=== PATIENT | male | born 1960 | race Caucasian/White ===

== ENCOUNTER → 2017-04-11 15:25 | Outpatient (REF) | payer OTHER, SELFPAY ==
[2017-04-11 18:46] LABS: Chol/HDL Ratio 5.4 (1-3.5); Cholesterol 193 mg/dL (140-200); HDL Cholesterol 36 mg/dL (27-67); LDL Cholesterol 112 mg/dL (0-130); Triglycerides 226 mg/dL (30-200); VLDL Cholesterol 45 mg/dL (0-40)
== END ==
LOC: LAB 15:25
PROVIDERS: Visit Provider Nurse Practitioner Family
DX: E78.5 Hyperlipidemia, unspecified (principal)
CPT/HCPCS: 80061

== ENCOUNTER → 2020-06-06 17:18 | Outpatient (CLI) | payer OTHER, SELFPAY ==
[2020-06-06 18:04] LABS: Basophils # 0.1 K/mm3 (0-0.2); Basophils % 0.7 % (0.1-2.0); Eosinophils # 0.3 K/mm3 (0.0-0.4); Eosinophils % 3.1 % (0.1-12.0); Hematocrit 44.5 % (42.0-52.0); Lymphocytes % 33.6 % (10-50); Mean Corpuscular HGB Conc 33.8 g/dL (31.8-35.4); Mean Corpuscular Volume 97.6 fl (80-94); Mean Platelet Volume 8.2 fl (7.4-10.4); Monocytes # 0.6 K/mm3 (0.1-1.0); Monocytes % 6.7 % (1.7-9.3); Platelet Count 301 K/mm3 (142-424); Red Blood Count 4.56 M/mm3 (4.60-6.20); Red Cell Distribution Width 12.3 % (11.5-17.5); White Blood Count 8.9 K/mm3 (4.8-10.8)
[2020-06-06 18:11] LABS: Alanine Aminotransferase 29 U/L (12-78); Albumin Level 4.5 g/dl (3.5-5.0); Albumin/Globulin Ratio 1.7 (1.1-1.8); Alkaline Phosphatase 84 U/L (38-126); Anion Gap 12.7 mEq/L (5-15); Aspartate Amino Transferase 41 U/L (17-59); Bilirubin,Total 0.7 mg/dl (0.2-1.3); Blood Urea Nitrogen 20 mg/dl (9-20); Calcium 9.7 mg/dl (8.4-10.2); Carbon Dioxide 22 mmol/L (22.0-30.0); Chloride 109 mmol/L (98-107); Chol/HDL Ratio 5.5 (1-3.5); Cholesterol 180 mg/dl (140-200); Estimated Glomerular Filt Rate 87 ml/min (>60); GFR (African American) 105 ML/MIN (>60); Globulin 2.6 g/dL (1.3-3.2); Glucose 109 mg/dl (74-100); HDL Cholesterol 33 mg/dl (40-60); Potassium 4.7 mmoL/L (3.5-5.1); Sodium 139 mmol/L (136-145); Total Protein,Serum 7.1 g/dl (6.3-8.2); Triglycerides 123 mg/dl (30-150); VLDL Cholesterol 25 mg/dL (0-40)
[2020-06-06 18:22] LABS: Direct LDL Cholesterol 118.41 mg/dL (100-129)
[2020-06-06 18:27] LABS: Free T4 (Free Thyroxine) 1.28 ng/dl (0.78-2.19)
[2020-06-06 18:28] LABS: 25-OH Vitamin D, Total 40.1 ng/mL (30-100)
[2020-06-06 18:42] LABS: Prostate Specific Ag Screen 1.3 ng/ml (0.0-4.0); Thyroid Stimulating Hormone 0.54 uIU/mL (0.465-4.68)
== END ==
PROVIDERS: Visit Provider Physician Assistant
DX: I25.10 Atherosclerotic heart disease of native coronary artery without angina pectoris (principal); E78.5 Hyperlipidemia, unspecified; K21.9 Gastro-esophageal reflux disease without esophagitis; Z12.5 Encounter for screening for malignant neoplasm of prostate
CPT/HCPCS: 80053; 80061; 82306; 84439; 84443; 85025; G0103

== ENCOUNTER → 2021-08-25 06:16 | Outpatient (CLI) | payer OTHER, SELFPAY ==
[2021-08-24 17:07] LABS: Basophils # 0.1 K/mm3 (0-0.2); Basophils % 1.2 % (0.1-2.0); Eosinophils # 0.2 K/mm3 (0.0-0.4); Eosinophils % 1.7 % (0.1-12.0); Hematocrit 47.9 % (42.0-52.0); Hemoglobin 15.3 g/dL (14.1-18.0); Lymphocytes # 3.2 K/mm3 (0.7-4.5); Lymphocytes % 32.8 % (10-50); Mean Corpuscular HGB Conc 31.8 g/dL (31.8-35.4); Mean Corpuscular Hemoglobin 34.5 pg (27.0-31.2); Mean Corpuscular Volume 108.3 fl (80-94); Mean Platelet Volume 7.7 fl (7.4-10.4); Monocytes # 0.7 K/mm3 (0.1-1.0); Monocytes % 7.5 % (1.7-9.3); Neutrophils # 5.5 K/mm3 (1.8-7.8); Neutrophils % 56.7 % (37.0-80.0); Platelet Count 391 K/mm3 (142-424); Red Blood Count 4.43 M/mm3 (4.60-6.20); Red Cell Distribution Width 12.7 % (11.5-17.5); White Blood Count 9.7 K/mm3 (4.8-10.8)
[2021-08-24 17:35] LABS: Alanine Aminotransferase 30 U/L (12-78); Albumin Level 4.5 g/dl (3.5-5.0); Albumin/Globulin Ratio 1.7 (1.1-1.8); Alkaline Phosphatase 103 U/L (38-126); Aspartate Amino Transferase 42 U/L (17-59); Bilirubin,Total 0.5 mg/dl (0.2-1.3); Blood Urea Nitrogen 24 mg/dl (9-20); Calcium 9.5 mg/dl (8.4-10.2); Carbon Dioxide 23 mmol/L (22.0-30.0); Chloride 105 mmol/L (98-107); Chol/HDL Ratio 6.1 (1-3.5); Cholesterol 245 mg/dl (140-200); Estimated Glomerular Filt Rate 76 ml/min (>60); GFR (African American) 93 ML/MIN (>60); Globulin 2.7 g/dL (1.3-3.2); Glucose 83 mg/dl (74-100); HDL Cholesterol 40 mg/dl (40-60); Sodium 139 mmol/L (136-145); Total Protein,Serum 7.2 g/dl (6.3-8.2); Triglycerides 294 mg/dl (30-150); VLDL Cholesterol 59 mg/dL (0-40)
[2021-08-24 17:46] LABS: Direct LDL Cholesterol 147.35 mg/dL (100-129)
[2021-08-24 17:52] LABS: 25-OH Vitamin D, Total 35.5 ng/mL (30-100)
[2021-08-24 18:07] LABS: Prostate Specific Ag Screen 2.1 ng/ml (0.0-4.0); Thyroid Stimulating Hormone 0.89 uIU/mL (0.465-4.68)
== END ==
PROVIDERS: PCP Physician Assistant; Visit Provider Physician Assistant
DX: Z00.00 Encounter for general adult medical examination without abnormal findings (principal); Z12.5 Encounter for screening for malignant neoplasm of prostate
CPT/HCPCS: 80053; 80061; 82306; 84443; 85025; G0103

== ENCOUNTER 2023-03-19 10:25 | Outpatient (CLI) | payer OTHER, SELFPAY ==
[2023-03-20 17:21] LABS: Vitamin B12 604 pg/mL (239-931)
== END 2023-03-20 23:59 | disposition home or self-care (01) ==
PROVIDERS: PCP Physician Assistant; Visit Provider Physician Assistant
DX: R89.9 Unspecified abnormal finding in specimens from other organs, systems and tissues (principal); E78.5 Hyperlipidemia, unspecified
CPT/HCPCS: 82607; 82746

== ENCOUNTER 2023-03-19 21:17 | Outpatient (CLI) | payer OTHER, SELFPAY ==
[2023-03-19 18:40] LABS: Basophils # 0.1 K/mm3 (0-0.2); Basophils % 0.7 % (0.1-2.0); Eosinophils # 0.2 K/mm3 (0.0-0.4); Eosinophils % 1.8 % (0.1-12.0); Hematocrit 37.1 % (42.0-52.0); Hemoglobin 14.7 g/dL (14.1-18.0); Lymphocytes # 2.9 K/mm3 (0.7-4.5); Lymphocytes % 30.5 % (10-50); Mean Corpuscular HGB Conc 39.7 g/dL (31.8-35.4); Mean Platelet Volume 8.2 fl (7.4-10.4); Monocytes # 0.8 K/mm3 (0.1-1.0); Monocytes % 8.2 % (1.7-9.3); Neutrophils # 5.5 K/mm3 (1.8-7.8); Neutrophils % 58.7 % (37.0-80.0); Platelet Count 321 K/mm3 (142-424); Red Blood Count 3.64 M/mm3 (4.60-6.20); Red Cell Distribution Width 12.7 % (11.5-17.5); White Blood Count 9.4 K/mm3 (4.8-10.8)
[2023-03-19 18:43] LABS: Alanine Aminotransferase 40 U/L (12-78); Albumin Level 4.3 g/dl (3.5-5.0); Albumin/Globulin Ratio 1.8 (1.1-1.8); Alkaline Phosphatase 85 U/L (38-126); Anion Gap 11.7 mEq/L (5-15); Aspartate Amino Transferase 47 U/L (17-59); Bilirubin,Total 0.4 mg/dl (0.2-1.3); Blood Urea Nitrogen 18 mg/dl (9-20); Calcium 9.8 mg/dl (8.4-10.2); Carbon Dioxide 24 mmol/L (22.0-30.0); Chloride 108 mmol/L (98-107); Chol/HDL Ratio 7.6 (1-3.5); Cholesterol 198 mg/dl (140-200); Estimated Glomerular Filt Rate 99 ml/min (>60); GFR (African American) 119 ML/MIN (>60); Globulin 2.4 g/dL (1.3-3.2); Glucose 78 mg/dl (74-100); HDL Cholesterol 26 mg/dl (40-60); Potassium 4.7 mmoL/L (3.5-5.1); Sodium 139 mmol/L (136-145); Total Protein,Serum 6.7 g/dl (6.3-8.2); Triglycerides 167 mg/dl (30-150); VLDL Cholesterol 33 mg/dL (0-40)
[2023-03-19 18:47] LABS: Mean Corpuscular Hemoglobin 40.5 pg (27.0-31.2)
[2023-03-19 18:56] LABS: Direct LDL Cholesterol 138.55 mg/dL (100-129)
[2023-03-19 19:05] LABS: 25-OH Vitamin D, Total 32.3 ng/mL (30-100)
[2023-03-19 19:18] LABS: Prostate Specific Ag Screen 1.9 ng/ml (0.0-4.0); Thyroid Stimulating Hormone 0.84 uIU/mL (0.465-4.68)
== END 2023-03-19 23:59 ==
LOC: LAB.DROPOF 21:18
PROVIDERS: PCP Physician Assistant; Visit Provider Physician Assistant
DX: R06.00 Dyspnea, unspecified (principal); E78.5 Hyperlipidemia, unspecified; Z12.5 Encounter for screening for malignant neoplasm of prostate; Z79.899 Other long term (current) drug therapy
CPT/HCPCS: 80053; 80061; 82306; 84443; 85025; G0103

== ENCOUNTER 2023-04-01 12:39 | Outpatient (CLI) | payer OTHER, SELFPAY ==
--- NOTE | 2023-04-01 12:51 | US_ITS ---
FINAL REPORT CLINICAL HISTORY: CLAUDICATION,REST PAIN,HLD,SMOKER,CAD COMPARISON: None FINDINGS: ANKLE-BRACHIAL PRESSURE INDICES Pressure indices are as follows: RIGHT LOWER EXTREMITY: Ankle-brachial pressure index: 1.0 Comments: Normal LEFT LOWER EXTREMITY: Ankle-brachial pressure index: 0.8 Comments: Mild disease IMPRESSION: Mild obstructive peripheral vascular disease of the left lower extremity. No evidence of significant obstructive peripheral vascular disease of the right lower extremity. Reviewed, Interpreted and Dictated by Moshe Dooley III, MD Transcribed by Essie Martinez Authenticated and [facility]
== END 2023-04-01 23:59 ==
LOC: RT 12:39
PROVIDERS: PCP Physician Assistant; Visit Provider Physician Assistant
DX: M79.604 Pain in right leg (principal); M79.605 Pain in left leg; I70.213 Atherosclerosis of native arteries of extremities with intermittent claudication, bilateral legs
CPT/HCPCS: 93923

== ENCOUNTER 2023-04-05 09:48 | Outpatient (CLI) | payer OTHER, SELFPAY ==
--- NOTE | 2023-04-05 09:49 | CA_ITS ---
APPROVED REPORT EXAM: Comprehensive 2D, Doppler, and color-flow Echocardiogram Instructor Dancing: JAYCEE Salazar, RVS Ht: 5 ft 7 in Wt: 158lbs BSA: 1.83 BP: 114/80 mmHg Indications: CADm SOA, GERD, COPD, Smoker, LONG, HTN, Edema 2D Dimensions Left Atrium 3.15 cm LA Volume 61.10 mL LA Volume Index 32.70 mL/m2 (M/F) 16-34 M-Mode Dimensions RVDd 2.49 cm (0.9-2.6) LA Diam 3.72 cm (1.9-4.0) LVDd 4.97 cm (3.5-5.7) LVDs 3.15 cm (3.5-5.7) IVSd 0.88 cm (0.6-1.1) PWd 0.89 cm (0.6-1.1) EF (Teich) 66.20% EPSs 0.49 cm FS 36.60% EDV (Teich) 116.60 mL TAPSE 2.62 (<1.7) ESV (Teich) 39.40 mL LV Diastology E Decel Time 267 (160-240 msec) E/A Ratio 1.07 MED A' 14.20 cm/s LAT A' 18.30 cm/s Aortic Valve ELSY Index 1.17 cm2/m2 AoV Peak Garry. 157.0 (50-130 cm/s) AI PHT 325.00 ms AO Peak GR. 9.90 mmHg AO Mean GR. 4.90 (<5 mmHg) AO VTI 29.9 (18-25 cm) ELSY (VTI) 2.19 (2.5-4.5 cm2) Mitral Valve MV A Velocity 72.0 (40-130 cm/s) E/A Ratio 1.07 Left Ventricle The left ventricle is normal size. The left ventricular systolic function is normal. The left ventricular ejection fraction is within the normal range. There is normal left ventricular wall thickness. There is normal LV segmental wall motion. The left ventricular diastolic function is normal. LVEF is 55%. Right Ventricle The right ventricle is normal size. The right ventricular systolic function is normal. Atria The left atrium size is normal. The right atrium size is normal. Aortic Valve The aortic valve is mildly thickened. There is no aortic valvular stenosis. Mild aortic regurgitation. Mitral Valve The mitral valve leaflets are mildly thickened. No evidence of mitral valve stenosis. Mild mitral regurgitation. Tricuspid Valve The tricuspid valve leaflets are thin and pliable. Trace tricuspid regurgitation. There is insufficient TR jet to estimate RVSP. Pulmonic Valve The pulmonary valve is normal in structure. Trace pulmonic regurgitation. Great Vessels The aortic root is normal in size. The ascending aorta is not well-visualized. IVC is normal in size and collapses >50% with inspiration. Pericardium There is no pericardial effusion. Conclusion Normal biventricular systolic function. Mild AI, mild MR. Electronically signed by : Elizabeth Suresh MD 04/09/2023 11:50:00
[2023-04-05] MEDS: ALBUTEROL 0.083% 2.5 MG/3 ML NEB IH (14:57)
== END 2023-04-05 23:59 ==
LOC: RT 09:49
PROVIDERS: PCP Physician Assistant; Visit Provider Physician Assistant
DX: R06.09 Other forms of dyspnea (principal); I25.10 Atherosclerotic heart disease of native coronary artery without angina pectoris; I10 Essential (primary) hypertension; E78.5 Hyperlipidemia, unspecified; J44.89 Other specified chronic obstructive pulmonary disease
CPT/HCPCS: 93306; 94060; 94726; 94729

== ENCOUNTER 2023-04-11 15:10 | Outpatient (CLI) | payer OTHER, SELFPAY ==
--- NOTE | 2023-04-11 15:10 | CT_ITS ---
FINAL REPORT TECHNIQUE: Thin section axial images were obtained from the lung apices to the upper abdomen by computed tomography. Reformatted images were obtained and reviewed. This study was performed with techniques to keep radiation doses al low as reasonably achievable (ALARA). Individualized dose reduction techniques using automated exposure control or adjustment of mA and/or kV according to the patient's size were employed. CLINICAL HISTORY: lung cancer screening COMPARISON: None FINDINGS: CHEST CT LOW DOSE 62-year-old male, quit smoking 15 years ago, 31-qzat-buit history. CTDI vol (mGy): 2.9 DLP (mGy-cm): 101.6 There is no axillary adenopathy. There is no mediastinal or hilar mass or adenopathy. The heart is normal in size. There is no pericardial or pleural effusion. There are advanced changes of centrilobular emphysema. There is a bulla at the right lung base which measures up to 4 cm in size. Lung window images demonstrate no suspicious infiltrate or nodule. Limited images of the upper abdomen are unremarkable. IMPRESSION: Lung-RADS category 1S, with the S designation for advanced changes of centrilobular emphysema.. Recommend 12 month follow up low dose chest CT. Reviewed, Interpreted and Dictated by Ron Rivas MD Transcribed by Nolvia James Authenticated and [facility]
== END 2023-04-11 23:59 ==
LOC: RAD 15:10
PROVIDERS: PCP Physician Assistant; Visit Provider Physician Assistant
DX: Z87.891 Personal history of nicotine dependence (principal)
CPT/HCPCS: 71271

== ENCOUNTER 2023-04-18 10:54 | Outpatient (CLI) | payer OTHER, SELFPAY ==
[2023-04-18 11:17] LABS: Basophils # 0.1 K/mm3 (0-0.2); Basophils % 1.4 % (0.1-2.0); Eosinophils # 0.2 K/mm3 (0.0-0.4); Eosinophils % 2.5 % (0.1-12.0); Hematocrit 47.7 % (42.0-52.0); Hemoglobin 15.3 g/dL (14.1-18.0); Lymphocytes # 2.7 K/mm3 (0.7-4.5); Lymphocytes % 32.6 % (10-50); Mean Corpuscular HGB Conc 32.1 g/dL (31.8-35.4); Mean Corpuscular Hemoglobin 34.2 pg (27.0-31.2); Mean Corpuscular Volume 106.5 fl (80-94); Mean Platelet Volume 7.8 fl (7.4-10.4); Monocytes # 0.5 K/mm3 (0.1-1.0); Monocytes % 5.7 % (1.7-9.3); Neutrophils # 4.7 K/mm3 (1.8-7.8); Neutrophils % 57.7 % (37.0-80.0); Platelet Count 344 K/mm3 (142-424); Red Blood Count 4.48 M/mm3 (4.60-6.20); Red Cell Distribution Width 12.9 % (11.5-17.5); White Blood Count 8.2 K/mm3 (4.8-10.8)
[2023-04-18 11:45] LABS: Alanine Aminotransferase 44 U/L (12-78); Albumin Level 4.4 g/dl (3.5-5.0); Albumin/Globulin Ratio 1.8 (1.1-1.8); Alkaline Phosphatase 87 U/L (38-126); Anion Gap 11.4 mEq/L (5-15); Aspartate Amino Transferase 47 U/L (17-59); Bilirubin,Total 0.7 mg/dl (0.2-1.3); Blood Urea Nitrogen 14 mg/dl (9-20); Calcium 10.1 mg/dl (8.4-10.2); Carbon Dioxide 26 mmol/L (22.0-30.0); Chloride 109 mmol/L (98-107); Estimated Glomerular Filt Rate 98 ml/min (>60); GFR (African American) 119 ML/MIN (>60); Globulin 2.4 g/dL (1.3-3.2); Glucose 108 mg/dl (74-100); Lactate Dehydrogenase 206 U/L (313-618); Potassium 5.4 mmoL/L (3.5-5.1); Sodium 141 mmol/L (136-145); Total Protein,Serum 6.8 g/dl (6.3-8.2)
[2023-04-19 07:49] LABS: Haptoglobin 137 mg/dL (32-363)
[2023-04-20 11:01] LABS: Peripheral Smear Review Scanned Result
== END 2023-04-18 23:59 ==
LOC: LAB 10:55
PROVIDERS: PCP Physician Assistant; Visit Provider Internal Medicine Medical Oncology
DX: D50.9 Iron deficiency anemia, unspecified (principal)
CPT/HCPCS: 36415; 80053; 82525; 83010; 83615; 85025; 85044; 86880

== ENCOUNTER 2023-05-16 16:13 | Outpatient (CLI) | payer OTHER, SELFPAY ==
[2023-05-16 17:02] LABS: Basophils # 0.2 K/mm3 (0-0.2); Basophils % 1.4 % (0.1-2.0); Eosinophils # 0.3 K/mm3 (0.0-0.4); Eosinophils % 2.6 % (0.1-12.0); Hematocrit 45.6 % (42.0-52.0); Lymphocytes # 3.8 K/mm3 (0.7-4.5); Lymphocytes % 35.5 % (10-50); Mean Corpuscular Hemoglobin 34.9 pg (27.0-31.2); Mean Corpuscular Volume 105.8 fl (80-94); Mean Platelet Volume 7.9 fl (7.4-10.4); Monocytes # 0.7 K/mm3 (0.1-1.0); Monocytes % 6.7 % (1.7-9.3); Neutrophils # 5.8 K/mm3 (1.8-7.8); Neutrophils % 53.8 % (37.0-80.0); Platelet Count 373 K/mm3 (142-424); Red Blood Count 4.31 M/mm3 (4.60-6.20); Red Cell Distribution Width 12.4 % (11.5-17.5); White Blood Count 10.7 K/mm3 (4.8-10.8)
[2023-05-22 11:29] LABS: Alpha-1-Antitrypsin 167 mg/dL (101-187)
[2023-05-23 18:20] LABS: D001-IgE D pteronyssinus <0.10 kU/L (Class 0); D002-IgE D farinae <0.10 kU/L (Class 0); E001-IgE Cat Dander <0.10 kU/L (Class 0); E005-IgE Dog Dander <0.10 kU/L (Class 0); E072-IgE Mouse Urine <0.10 kU/L (Class 0); G002-IgE Bermuda Grass <0.10 kU/L (Class 0); G006-IgE Timothy Grass <0.10 kU/L (Class 0); I006-IgE Cockroach, German <0.10 kU/L (Class 0); Immunoglobulin E, Total 72 IU/mL (6-495); M001-IgE Penicillium chrysogen <0.10 kU/L (Class 0); M002-IgE Cladosporium herbarum <0.10 kU/L (Class 0); M003-IgE Aspergillus fumigatus <0.10 kU/L (Class 0); M006-IgE Alternaria alternata <0.10 kU/L (Class 0); T001-IgE Maple/Box Elder <0.10 kU/L (Class 0); T003-IgE Common Silver Birch <0.10 kU/L (Class 0); T006-IgE Cedar, Mountain <0.10 kU/L (Class 0); T007-IgE Oak, White <0.10 kU/L (Class 0); T008-IgE Elm, American <0.10 kU/L (Class 0); T010-IgE Walnut <0.10 kU/L (Class 0); T011-IgE Maple Leaf Sycamore <0.10 kU/L (Class 0); T014-IgE Cottonwood <0.10 kU/L (Class 0); T015-IgE Ash, White <0.10 kU/L (Class 0); T022-IgE Pecan, Hickory <0.10 kU/L (Class 0); T070-IgE White Mulberry <0.10 kU/L (Class 0); W001-IgE Ragweed, Short <0.10 kU/L (Class 0); W011-IgE Thistle, Russian <0.10 kU/L (Class 0); W014-IgE Pigweed, Common <0.10 kU/L (Class 0); W018-IgE Sheep Sorrel <0.10 kU/L (Class 0)
== END 2023-05-16 23:59 ==
LOC: LAB 16:14
PROVIDERS: PCP Physician Assistant; Visit Provider Internal Medicine Pulmonary Disease
DX: J43.9 Emphysema, unspecified (principal); J45.909 Unspecified asthma, uncomplicated; R09.89 Other specified symptoms and signs involving the circulatory and respiratory systems; R05.9 Cough, unspecified; R06.09 Other forms of dyspnea
CPT/HCPCS: 36415; 82103; 82104; 82785; 85025; 86003

== ENCOUNTER 2024-05-05 07:47 | Outpatient (CLI) | payer OTHER, SELFPAY ==
--- NOTE | 2024-05-05 07:50 | CT_ITS ---
FINAL REPORT CLINICAL HISTORY: lung cancer screening, 1ppd for 30 years COMPARISON: 04/11/2023 FINDINGS: CT CHEST LOW DOSE SCREENING HISTORY: Screening exam for lung cancer. 64-year-old male, current smoker, 56-aohg-ntbw history DOSE: CTDI vol: 2.9 mGy, DLP: 108.38 mGy*cm TECHNIQUE: Axial CT without IV contrast administration using low dose protocol. This study was performed with techniques to keep radiation doses as low as reasonably achievable, (ALARA). Individualized dose reduction techniques using automated exposure control or adjustment of mA and/or kV according to the patient's size were employed. No acute lung disease is present. No pulmonary lesions are seen suspicious for neoplasm. Advanced changes of emphysema are once again identified. No pleural or pericardial effusion is seen. No adenopathy or mass lesion is present. IMPRESSION: No evidence of lung cancer LUNG RADS CATEGORY 1 RECOMMENDATION: 12 month LDCT follow up Reviewed, Interpreted and Dictated by Yanely Scott MD Transcribed by Nolvia James Authenticated and [facility]
== END 2024-05-05 23:59 | disposition home or self-care (01) ==
LOC: RAD 07:48
PROVIDERS: PCP Nurse Practitioner Family; Visit Provider Internal Medicine Pulmonary Disease
DX: F17.210 Nicotine dependence, cigarettes, uncomplicated (principal)
CPT/HCPCS: 71271

== ENCOUNTER 2024-08-25 15:19 | Outpatient (CLI) | payer OTHER, SELFPAY ==
[2024-08-25 15:00] LABS: Alanine Aminotransferase 52 U/L (12-78); Albumin Level 4.7 g/dl (3.5-5.0); Albumin/Globulin Ratio 1.8 (1.1-1.8); Alkaline Phosphatase 87 U/L (38-126); Anion Gap 20.0 mEq/L (5-15); Aspartate Amino Transferase 53 U/L (17-59); Bilirubin,Total 0.7 mg/dl (0.2-1.3); Blood Urea Nitrogen 17 mg/dl (9-20); Calcium 10.2 mg/dl (8.4-10.2); Carbon Dioxide 25 mmol/L (22.0-30.0); Chloride 101 mmol/L (98-107); Cholesterol 223 mg/dl (140-200); Creatinine,Serum 0.90 mg/dl (0.66-1.25); Estimated Glomerular Filt Rate 86 ml/min (>60); GFR (African American) 103 ML/MIN (>60); Globulin 2.6 g/dL (1.3-3.2); Glucose 105 mg/dl (74-100); HDL Cholesterol 35 mg/dl (40-60); Magnesium 1.9 mg/dl (1.6-2.3); Sodium 140 mmol/L (136-145); Total Protein,Serum 7.3 g/dl (6.3-8.2); Triglycerides 214 mg/dl (30-150)
[2024-08-25 15:11] LABS: Hemoglobin A1C 6.3 % (4.0-6.0)
[2024-08-25 15:15] LABS: Potassium 6.0 mmoL/L (3.5-5.1)
[2024-08-25 15:28] LABS: Thyroid Stimulating Hormone 0.60 uIU/mL (0.465-4.68)
== END 2024-08-25 23:59 | disposition home or self-care (01) ==
LOC: LAB.DROPOF 15:19
PROVIDERS: PCP Nurse Practitioner Family; Visit Provider Nurse Practitioner Family
DX: E87.5 Hyperkalemia (principal); I10 Essential (primary) hypertension; I25.10 Atherosclerotic heart disease of native coronary artery without angina pectoris; Z12.5 Encounter for screening for malignant neoplasm of prostate
CPT/HCPCS: 80053; 80061; 82043; 82570; 83036; 83735; 84443; G0103

== ENCOUNTER 2024-08-26 09:42 | Outpatient (CLI) | payer OTHER, SELFPAY ==
[2024-08-26 10:07] LABS: Potassium 5.3 mmoL/L (3.5-5.1)
== END 2024-08-26 23:59 | disposition home or self-care (01) ==
LOC: LAB.DROPOF 09:43
PROVIDERS: PCP Nurse Practitioner Family; Visit Provider Nurse Practitioner Family
DX: E87.5 Hyperkalemia (principal)
CPT/HCPCS: 84132

== ENCOUNTER 2024-09-09 09:15 | Outpatient (CLI) | payer OTHER, SELFPAY ==
--- OUTSIDE RECORDS SUMMARY | 2017-09-17 10:30 | XMS_ITS | Continuity of Care Document ---
Author Organization [facility] Address [address] [place] [address] Phone Care Team Providers Care Baggage Clerk Name Role Phone Eloy Gregg PA-C Unavailable Unavailable Allergies, Adverse Reactions, Alerts Substance Reaction Status Criticality No Known Allergies Active No Inform ation Medications Medication Instructions Dosage Effective Dates (start - stop) Status Comments IBUPROFEN (unknown strength) Not Available - Active ketorolac 10 mg tablet take 1 tablet by oral route every 8 hours as needed for up to 5 days total use 10 MG - No Longer Active etodolac 400 mg tablet take 1 tablet (400MG) by oral route 2 times every day with food 400 MG - No Longer Active Procedures Procedure Date Knee Xray Complete 4 Or More Views Knee Xray Both Knees Standing AP 2017 Office/outpatient visit,new, mod 2017 Office/outpatient visit,est, mod 2012 Copay Payment Charge X-ray exam of both knees, standing Office/outpatient visit,est, mod 2012 Knee arthscpy mnsctmy medial & lat Office/outpatient visit,est, mod 2010 Office/outpatient visit,est, mod 2010 Office consultation, moderate-high Advance Directives Directive Yes / No Effective Date File Name No Information Encounters Encounter Description Practice Location Reason(s) For Visit Diagnoses Date Provider Providers Copied on Encounter Office/outpat ient visit,new, [facility], [address] [place] [address], [id number], [place] tel:[phone] [facility] knee (chief complaint) Pain in left kneeSprain of medial collateral ligament of left knee, initial encounter Marysol Lyons. [address] [facility], [place], [place], [id number], [place]. tel:[phone] Office/outpat ient visit,[facility], [facility], [address] [place] [address], [id number], [place] tel:[phone] POORNIMA Kenny bilateral knee pain (chief complaint) Med Meniscus/Dera ng(Old) - Unspecified Shanita Milligan. [address], [place], [place], [id number], [place]. tel:[phone] Office/outpat ient visit,[facility], [facility], [address] [place] [address], [id number], [place] tel:[phone] POORNIMA Kenny bilateral knee pain (chief complaint) Billing ReviewMed Meniscus/Dera ng(Old) - Unspecified Shanita Milligan. [address], [place], [place], [id number], [place]. tel:[phone] [facility], [address] [place] [address], [id number], tel:[phone] [facility] No Information Shanita Milligan. [address], [place], [place], [id number], [place]. tel:[phone] Referring Provider: Srini Ford, [address], [place], [address] . tel:[phone] Office/outpat ient visit,[facility], [facility], [address] [place] [address], [id number], tel:[phone] [facility] 1 No Information Shanita Milligan. [address], [place], [place], [id number], . tel:[phone] Office/outpat ient visit,est, mod [facility], [address] [place] [address], [id number], tel:[phone] [facility] 1 No Information Shanita Milligan. [address], [place], [place], [id number], . tel:[phone] Office consultation, moderate-[facility], [address] [place] [address], [id number], tel:[phone] [facility] 1 No Information Shanita Milligan. [address], [place], [place], [id number], . tel:[phone] Family History Family Member Type Diagnosis Age At Onset Problem (finding) Family history of Diabe chantal mellitus Payers Payer name Insurance type Covered democrat ID Rickiefarrah josejam(s) [place] [facility] [id number] Social History Type Description Quantity Date Captured Comments Alcohol Use Details Unknown Caffeine Use Details Unknown Tobacco Use Status Current non-smoker 20 Smoking Status Never smoker Non-Smoking Tobacco Use Details : No Details Available : No Details Available Sex Male Vital Signs Date / Time: Height Weight BMI Pulse Rate Blood Pressure Temperature Respiratory Rate Body Surface Area Head Circumference Head Circ. Percentile Wt./Artem. Percentile BMI percentile Pulse Ox Inhaled Ox 3:25 PM 73.00 in 106.594 kg (235.00 lbs) 31.0 0 kg/m eter (2) Chief Complaint And Reason For Visit From encounter dated '09/17/2017 14:30'. knee (chief complaint) Reason For Referral Reason For Referral No Information Plan Of Treatment Date Type Action Status Future Order: Radiology Order Kn ee Xray 3 Views ([id number]), Ordered on: Ordered Future Order: Radiology Order Kn ee Xray Both Knees Standing AP ([id number]), Ordered on: Ordered History Of Present Illness Encounter Date Complaint History Of Prese nt Illness knee bilateral knee pain bilateral knee pain Functional Status Date Functional Assessmen t No Information Instructions Date Instruction Additional Infor ravindra f/u prn Related to Med M eniscus/Derang(Old) - Unspecified Assessments Type Assessment Date assessment Pain in left knee assessment Sprain of medial col lateral ligament of left knee, initial encounter Patient Care Teams Name Effective Dates (start - stop) Status Members No Information
[2024-09-09 15:29] LABS: Potassium 6.2 mmoL/L (3.5-5.1)
== END 2024-09-09 23:59 | disposition home or self-care (01) ==
LOC: LAB.DROPOF 09-10 15:10
PROVIDERS: PCP Nurse Practitioner Family; Visit Provider Nurse Practitioner Family
DX: E87.5 Hyperkalemia (principal)
CPT/HCPCS: 84132

== ENCOUNTER 2024-09-10 12:48 | Outpatient (CLI) | payer OTHER, SELFPAY ==
[2024-09-10 15:11] LABS: Potassium 5.4 mmoL/L (3.5-5.1)
== END 2024-09-10 23:59 ==
LOC: LAB.DROPOF 09-14 12:49
PROVIDERS: PCP Nurse Practitioner Family; Visit Provider Nurse Practitioner Family
DX: E87.5 Hyperkalemia (principal)
CPT/HCPCS: 84132

== ENCOUNTER 2024-09-29 09:46 | Outpatient (CLI) | payer OTHER, SELFPAY ==
[2024-09-29 10:32] LABS: Potassium 4.2 mmoL/L (3.5-5.1)
== END 2024-09-29 23:59 | disposition home or self-care (01) ==
LOC: LAB 09:47
PROVIDERS: PCP Nurse Practitioner Family; Visit Provider Nurse Practitioner Family
DX: E87.5 Hyperkalemia (principal)
CPT/HCPCS: 36415; 84132

== ENCOUNTER 2024-12-16 09:38 | Outpatient (CLI) | payer OTHER, SELFPAY ==
[2024-12-16] MEDS: ALBUTEROL 0.083% 2.5 MG/3 ML NEB IH (10:24)
--- NOTE | 2024-12-16 10:25 | PC.NURSE ---
Pre and Post Spirometry complete along with 6 Minute Walk Test. Albuterol 0.083% given via HHN, per written protocol, Pt tolerated tx well.
== END 2024-12-16 23:59 | disposition home or self-care (01) ==
LOC: RT 09:39
PROVIDERS: PCP Nurse Practitioner Family; Visit Provider Internal Medicine Pulmonary Disease
DX: J44.9 Chronic obstructive pulmonary disease, unspecified (principal); R94.2 Abnormal results of pulmonary function studies
CPT/HCPCS: 94010; 94618